=== PATIENT | female | born 1970 | race Caucasian/White ===

== ENCOUNTER → 2020-06-26 | Outpatient (CLI) | payer OTHER ==
[2020-06-26 17:46] LABS: BASOPHILS ABSOLUTE AUTO 0.11 K/mm3 (0.00-0.23); BASOPHILS PERCENT AUTO 1 % (0-2); EOSINOPHILS ABSOLUTE AUTO 0.13 K/mm3 (0.00-0.68); EOSINOPHILS PERCENT AUTO 1 % (0-6); Hemoglobin 15.4 g/dL (11.5-16.0); IMMATURE GRAN ABSOLUTE AUTO 0.02 K/mm3 (0.00-0.10); IMMATURE GRAN PERCENT AUTO 0 % (0-1); LYMPHOCYTES PERCENT AUTO 22 % (21-46); MONOCYTES ABSOLUTE AUTO 0.54 K/mm3 (0.16-1.47); MONOCYTES PERCENT AUTO 6 % (4-13); Mean Corpuscular HGB 31.6 pg (26.0-34.0); Mean Corpuscular HGB Conc 34.2 g/dL (31.5-36.5); Mean Corpuscular Volume 92 fL (80-100); Mean Platelet Volume 11.1 fL (9.1-12.4); NEUTROPHILS ABSOLUTE AUTO 6.37 K/mm3 (1.96-9.15); NEUTROPHILS PERCENT AUTO 70 % (41-73); Platelet Count 240 K/mm3 (150-400); RDW Coefficient Variation 11.6 % (11.7-14.2); RDW Standard Deviation 39.3 fL (35.1-46.3); Red Blood Cell Count 4.87 M/mm3 (3.80-5.20); White Blood Cell Count 9.17 K/mm3 (4.00-11.30)
[2020-06-26 18:33] LABS: Alanine Aminotransfer (ALT/SGP 27 U/L (12-78); Albumin, Blood 4.2 g/dL (3.4-5.0); Albumin/Globulin Ratio 1.1 (0.8-1.8); Alk Phos 80 U/L (50-136); Anion Gap 6 mmol/L (6-16); Aspartate Aminotrans (AST/SGOT 17 U/L (12-37); Bilirubin, Total 0.3 mg/dL (0.1-1.0); Blood Urea Nitrogen 16 mg/dL (8-24); Bun/Creatinine Ratio 21.9 (12.0-20.0); CHOL/HDL RATIO 3.3; CO2, Blood 24 mmol/L (21-32); Calcium, Blood 9.3 mg/dL (8.5-10.1); Chloride, Blood 110 mmol/L (98-108); Cholesterol 199 mg/dL (50-200); Creatinine, Blood 0.73 mg/dL (0.40-1.00); Globulin, Blood 3.7 g/dL (2.2-4.0); Glomerular Filtration Rate >60 (60-); Glucose, Blood 82 mg/dL (70-99); HDL Cholesterol 60 mg/dL (>39); LDL/HDL RATIO 2.1; Low Density Lipoprotein Chol 128 mg/dL (0-110); Sodium, Blood 140 mmol/L (136-145); Total Protein, Blood 7.9 g/dL (6.4-8.2); Triglycerides 57 mg/dL (30-160); Very Low Density Lipoprot Chol 11 mg/dL (6-32)
== END | disposition home or self-care (01) ==
LOC: PLD 14:15 → LAB SHORT 14:15 → LAB 14:15
PROVIDERS: Family Medicine
DX: Z00.00 Encounter for general adult medical examination without abnormal findings (principal); E03.8 Other specified hypothyroidism; R30.0 Dysuria
CPT/HCPCS: 80053; 80061; 84443; 85025; 87086

== ENCOUNTER → 2020-10-30 | Outpatient (CLI) | payer OTHER | END | disposition home or self-care (01) | LOC: LAB SHORT 07:27 | DX: L83 Acanthosis nigricans (principal) | CPT/HCPCS: 88305; 88312 ==